=== PATIENT | male | born 1950 | race Caucasian/White ===

== ENCOUNTER 2025-02-22 16:48 | Emergency (ER) | payer OTHER, SELFPAY ==
[2025-02-22 16:54] VITALS: BP 149/90
--- NOTE | 2025-02-22 19:07 | ED.GENMED ---
History of Present Illness
General
Chief Complaint: Musculo-Skeletal Complaint
Source: patient
Exam Limitations: none
Time Seen by Provider: 02/22/25 18:37
Nursing documentation reviewed up to this point in time: agreed with
History of Present Illness
History of Present Illness:
Patient is a 74-year-old male who presents to the emergency department with right shoulder pain after mechanical fall earlier today. Patient states that he was at [place] old [place] when he tripped on the curb and fell landing on his right shoulder.
He denies any head strike or loss of conscious. He denies any neck or back pain or pain in his lower extremities.
He initially went home and took 2 Advil however pain in his right shoulder progressed prompting visit to the emergency department. He denies any numbness/tingling in right arm or digits. He denies any weakness in right arm. He is however having
difficulty with abduction of right shoulder secondary to pain.
He is not on any blood thinners.
Past History
Past History
ED Past Medical History: Asthma, IDDM and Hypothyroidism
ED Past Surgical History: Other
Social History
Tobacco: Non-smoker
Drug: None
Personal:
Living: with family
Employment: Retired
Review of Systems
Review of Systems
Allergies reviewed?: Yes
All Other Systems: ROS reviewed and negative except as documented in HPI and ROS
Phy Exam
Physical Exam
Physical Exam:
Vitals: Hypertensive, otherwise vital signs stable. Afebrile
General: Patient is well appearing, no acute distress. Nontoxic appearing
Skin: Warm and dry, no rashes or lesions
Head: Normocephalic, atraumatic
Throat: Protecting airway
Neck: Normal ROM, no cervical spine tenderness
Cardiac: Regular rate and rhythm. No tenderness to anterior/posterior chest wall
Pulm: No apparent respiratory distress. Lungs clear bilaterally
Abdomen: Soft and nontender. Nondistended. No ecchymoses
Extremities: Tenderness over right mid clavicle. No tenting. No deformity of right shoulder. Limited abduction of right shoulder past 90 degrees secondary to pain. 2+ palpable right radial pulse with full sensation normal capillary refill. Full
range of motion of right elbow, no bony tenderness right upper arm or right forearm. Left upper extremity and bilateral lower extremities atraumatic and nontender with full range of motion
Neuro: Grossly intact
Psychiatric: Normal affect.
Course
Orders/Labs/Results
Orders:
Orders
02/22/25 16:57
CR Clavicle - Right Complete Urgent
Comment:
Reason For Exam: Injury
02/22/25 19:11
Sling Right-Treatment ONCE
Vital Signs
Initial and Last Documented VS:
Initial Vital Signs
Pulse Resp BP Pulse Ox
86 16 149/90 99
02/22/25 16:54 02/22/25 16:54 02/22/25 16:54 02/22/25 16:54
Last Documented Vital Signs
Pulse Resp BP Pulse Ox
77 16 141/78 98
02/22/25 19:29 02/22/25 19:29 02/22/25 19:29 02/22/25 19:29
MDM/Problems Addressed
Differential Diagnosis Includes:
Not limited to: Clavicle fracture, shoulder dislocation, shoulder contusion, muscle strain, proximal humerus fracture, etc.
MDM/Problems Addressed:
74-year-old male presents with right shoulder pain following mechanical fall earlier today. No associated head strike or loss of consciousness. No numbness/tingling in right arm or other injury sustained. Patient mildly hypertensive with
otherwise stable vital signs on arrival. Physical exam as above. X-ray reveals fracture of middle third of right clavicle. No skin tenting on exam. Right upper extremity neurovascularly intact. Will place right shoulder sling and discharged
home with orthopedic follow-up. Advised ice, NSAIDs/Tylenol for pain. Return precaution discussed. Patient comfortable with plan.
Chronic conditions affecting care:
N/A
Acute Exacerbation and/or Progression of Chronic Illness:
N/A
*Radiology
Radiology exam reviewed: preliminary read by ED provider (Right shoulder x-ray reviewed by me-mid clavicle fracture) and radiology read reviewed
*Pulse Oximetry
SaO2: 99
Oxygen Mode of Delivery: Room air
Patient hypoxic: no
*EKG
Interpreted by ED Provider?: NA
*Circular Saw Edge Fuser Interpretation
Rate: Circular Saw Edge Fuser- N/A
*Critical Care Note
Total Time (30-74mins, 75-104mins- exclusive of procedures): Not Applicable
Patient Management
Escalation/DeEscalation of care consider admission/obs:
Discharge with orthopedic follow-up outpatient
ED Attending Note
-
Portions of this chart may have been created with voice recognition software.� Occasional wrong word or��sound alike� substitutions may have occurred due to the inherent limitations of voice recognition software.
Discharge Plan
Departure
Patient Disposition: Home (Routine Discharge)
Date of Disposition: 02/22/25
Time of Disposition: 19:13
Patient with high blood pressure during this ER visit?: Yes
Condition: Good
Discharge Problem:
Right clavicle fracture
Instructions: Clavicle fracture, How to Use a Shoulder Sling, BLOOD PRESSURE
Prescriptions:
No Action
pravastatin 40 MG tablet
40 mg PO HS
lisinopril 10 MG tablet
10 mg PO DAILY
levothyroxine 150 MCG tablet
150 mcg PO DAILY
mometasone [Nasonex] 17 GM spray,non-aerosol
1 spray intranasal DAILY
aspirin 81 MG tablet,delayed release (DR/EC)
81 mg PO DAILY
tramadol 50 MG tablet
50 mg PO HS
Patient's Own Insulin Pump
0 units SC . PTS OWN PUMP
Patient Comments:
Patient uses Novolog basal rate 0.6 and bolus with meals
budesonide-formoterol [Symbicort] 1 PUFF HFA aerosol inhaler
2 puff inhalation R BID 0RF
oxycodone-acetaminophen 5-325 mg Tablet
2 tab PO Q4HPRN PRN (Reason: severe pain) Qty: 20 0RF
docusate sodium 100 mg Capsule
100 mg PO BID Qty: 60 0RF
tamsulosin 0.4 mg Capsule
0.4 mg PO DAILY Qty: 30 0RF
polyethylene glycol 3350 17 gram Powder In Packet
17 g PO DAILY Qty: 30 0RF
gabapentin 300 mg capsule
300 mg PO BID Qty: 60 0RF
furosemide 20 mg tablet
20 mg PO DAILY Qty: 20 0RF
Referrals:
Nba Sanders Jr., DO [Family Provider, Internal Medicine]
Christofer Aguayo MD [Active, Orthopedics] - Follow up in 1 week
Activity Restrictions/Additional Instructions:
RETURN TO THE EMERGENCY DEPARTMENT WITH ANY SIGNIFICANT PAIN OR WORSENING SWELLING RIGHT UPPER EXTREMITY, NUMBNESS/TINGLING RIGHT ARM, SIGNIFICANT WEAKNESS IN RIGHT ARM, HEADACHE OR NECK PAIN, OR ANY OTHER CONCERNS
- As discussed�your x-ray showed a fracture of your right clavicle. You should keep your right arm in shoulder sling for immobilization. You should ice the affected area frequently over the next few days. You can take Tylenol and/or Motrin as
needed for pain.
- Please be sure to range your elbow and shoulder minimally throughout the day to prevent stiffening of your joints.
- Follow-up with orthopedics within 1 week for further evaluation/management. The contact information has been provided for you above
Monitor your symptoms closely and return to the emergency department with any acute worsening/new symptoms or any other concerns
Interventions
Interventions:
*Risk Screen - Suicide Last Done: 02/22/25 19:29
*General Assessment Last Done: 02/22/25 19:29
*Neglect/Abuse Screening Last Done: 02/22/25 19:29
*ED- Fall Risk Assessment Last Done: 02/22/25 19:29
*ED COVID-19 Vaccine History Last Done: 02/22/25 19:29
*Nursing Disposition Last Done: 02/22/25 19:30
ED-Musculoskeletal Assessment Last Done: 02/22/25 19:29
Discharge Date and Time
Discharge Date/Time: 02/22/25 19:30
Print Language: BURUNDIAN
[2025-02-22 19:29] VITALS: BP 141/78
== END 2025-02-22 19:30 | disposition home or self-care (01) ==
LOC: EMR 16:48
PROVIDERS: EMERGENCY PHYSICIAN Student in an Organized Health Care Education/Training Program; FAMILY PHYSICIAN Family Medicine
DX: S42.021A Displaced fracture of shaft of right clavicle, initial encounter for closed fracture (principal); W19.XXXA Unspecified fall, initial encounter; E11.9 Type 2 diabetes mellitus without complications; E03.9 Hypothyroidism, unspecified; J45.909 Unspecified asthma, uncomplicated; Z79.4 Long term (current) use of insulin
CPT/HCPCS: 99283; 73000

== ENCOUNTER 2025-04-12 08:35 | Outpatient (RCR) | payer OTHER, SELFPAY | END 2025-04-12 23:59 | disposition home or self-care (01) | LOC: RPT 08:35 | PROVIDERS: ATTENDING PHYSICIAN Physician Assistant; FAMILY PHYSICIAN Family Medicine | DX: S42.021D Displaced fracture of shaft of right clavicle, subsequent encounter for fracture with routine healing (principal); Z73.6 Limitation of activities due to disability | CPT/HCPCS: 97110; 97161 ==

== ENCOUNTER 2025-07-02 13:24 | Emergency (ER) | payer OTHER, SELFPAY ==
[2025-07-02 13:27] VITALS: BP 148/73
--- NOTE | 2025-07-02 15:03 | ED.GENMED ---
History of Present Illness
General
Chief Complaint: Bowel Problem
Time Seen by Provider: 07/02/25 15:00
History of Present Illness
History of Present Illness:
FOCUSED PAST MEDICAL HISTORY
- High blood pressure, hyperlipidemia, IDDM
REVIEW OF OLD RECORDS
- The patient had colonoscopy in 2022 that showed sigmoid polyp which was removed and internal hemorrhoids
Note:
CHIEF COMPLAINT(S)
Constipation and difficulty having a bowel movement.
HISTORY OF PRESENT ILLNESS
The patient is a 74-year-old male who presents with concerns of constipation. The patient reported feeling the urge to have a bowel movement this morning but was initially unable to do so. Later, he had a bowel movement at home and another at the
facility approximately ten minutes before the consultation. He feels 'pretty good' now and does not currently have the sensation of needing to pass stool. There is no abdominal pain upon palpation, and he denies the presence of nausea or vomiting.
Recent evaluation by his primary care physician led to an increase in his Plavix dosage from 10 mg to 20 mg, and instructions were given to temporarily withhold one dose of Synthroid due to its levels being slightly elevated.
PAST MEDICAL AND SURGICAL HISTORY
According to external records reviewed by the provider, the patient has undergone a colonoscopy that identified and removed a small polyp, and internal hemorrhoids were noted, but no significant findings were reported.
EXTERNAL RECORDS REVIEWED
A review of the patients prior records indicates a colonoscopy with a small polyp removal and internal hemorrhoids.
CHRONIC MEDICAL CONDITIONS SIGNIFICANTLY AFFECTING CARE
The patient has a history of thyroid dysfunction and is on Synthroid medication. He also suffers from chronic back pain, for which he takes Tramadol at night.
SOCIAL DETERMINANTS AFFECTING HEALTH
The patient reports being brought to the facility by his .
MEDICATIONS
The patient is currently taking Synthroid for thyroid management and uses Tramadol at night for back pain.
REVIEW OF SYSTEMS
- Gastrointestinal: Reports recent constipation and difficulty with bowel movements.
- Neurological: No focal neurological deficits reported.
PHYSICAL EXAM
General: Alert, no acute distress.
Skin: Warm, dry. Some dried stool noted in the perianal region.
Head: Normocephalic, atraumatic.
Neck: Supple, trachea midline.
Eye, Ears, nose, mouth, and throat: Oral mucosa moist.
Cardiovascular: Normal peripheral perfusion, no edema. Regular rhythm.
Respiratory: Respirations are non-labored.
Gastrointestinal: Abdomen soft, non-tender upon palpation.
Rectal: Rectal vault empty, no fecal impaction felt.
Back: Normal range of motion, Normal alignment.
Musculoskeletal: Normal ROM, normal strength.
Neurological: Alert and oriented to person, place, time, and situation, No focal neurological deficit observed.
Psychiatric: Cooperative, appropriate mood & affect.
PROBLEM LIST
Acute: Constipation.
Chronic: Thyroid dysfunction, Back pain managed with Tramadol.
PLAN
1. Recommend vfey-vpw-hhenbib laxatives such as Miralax, Colace, or Senna to manage constipation.
2. Increase dietary fiber and hydration as tolerated.
3. Monitor bowel movements and return if symptoms worsen or do not improve.
4. Continue current medications as prescribed, with the temporary withholding of one Synthroid dose as per prior instructions.
5. Discharge home with instructions to follow up with primary care if needed.
DIFFERENTIAL DIAGNOSIS
The Differential Diagnosis includes, in no particular order and is not limited to:
1. Fecal impaction
2. Hypothyroidism
3. Hyperparathyroidism
4. Medication-induced constipation (e.g., Tramadol)
5. Colonic polyps
6. Hemorrhoids
7. Gastrointestinal motility disorders
8. Dehydration
9. Dietary factors or fiber intake issues
10. Irritable bowel syndrome
Disposition:
SUMMARY OF ENCOUNTER
The patient, a 74-year-old male, was evaluated for constipation and difficulty having a bowel movement. Upon presentation, he reported feeling improved after having a bowel movement both before and shortly after arrival at the emergency department.
His abdominal examination showed a soft and non-tender abdomen with an empty rectal vault, leading to the decision that no further workup was needed. Akhh-[id number] MiraLAX (polyethylene glycol 3350) was recommended for the management of his
constipation.
PLAN
1. Recommend the use of MiraLAX (polyethylene glycol 3350) to aid in bowel movements.
2. Advise increasing dietary fiber intake and maintaining adequate hydration.
3. Encourage monitoring of bowel movements and recommend returning for further evaluation if symptoms persist or worsen.
PATIENT EDUCATION AND COUNSELING
The patient was counseled on the potential benefits of using MiraLAX and the importance of dietary fiber and adequate hydration in managing constipation.
FOLLOW-UP INSTRUCTIONS
Follow up with the primary care physician if symptoms do not improve or worsen.
MEDICAL DECISION MAKING
- Number and Complexity of Problems Addressed: Chronic conditions affecting care: Thyroid dysfunction, back pain managed with tramadol. Differential diagnosis includes fecal impaction, hypothyroidism, hyperparathyroidism, medication-induced
constipation, colonic polyps, hemorrhoids, gastrointestinal motility disorders, dehydration, dietary factors, and irritable bowel syndrome.
- Data:
Category 1
- Review of prior records indicates a colonoscopy with a small polyp removal and internal hemorrhoids.
- Clinical information was obtained from the patients spouse.
Category 2
- No imaging or additional testing considered necessary based on current assessment.
- Risk:
Prescription drug management or therapy requiring monitoring for toxicity.
Care significantly affected by Social Determinants of Health: Patient transported by spouse.
DIAGNOSIS
- Constipation (ICD-10: K59.00)
- Internal hemorrhoids (ICD-10: K64.8)
- History of thyroid dysfunction (ICD-10: E07.9)
- Chronic narcotic use
Past History
Past History
ED Past Medical History: Asthma, IDDM and Hypothyroidism
ED Past Surgical History: Other
Social History
Tobacco: Non-smoker
Drug: None
Personal:
Living: with family
Employment: Retired
Phy Exam
Physical Exam
Physical Exam:
See HPI
Course
Vital Signs
Initial and Last Documented VS:
Initial Vital Signs
Temp Pulse Resp BP Pulse Ox
36.6 C 85 16 148/73 98
07/02/25 13:27 07/02/25 13:27 07/02/25 13:27 07/02/25 13:27 07/02/25 13:27
Last Documented Vital Signs
Temp Pulse Resp BP Pulse Ox
36.6 C 85 16 148/73 98
07/02/25 13:27 07/02/25 13:27 07/02/25 13:27 07/02/25 13:27 07/02/25 15:04
*Pulse Oximetry
SaO2: 98
Oxygen Mode of Delivery: Room air
Patient hypoxic: no
*Critical Care Note
Total Time (30-74mins, 75-104mins- exclusive of procedures): Not Applicable
ED Attending Note
-
Portions of this chart may have been created with voice recognition software.� Occasional wrong word or��sound alike� substitutions may have occurred due to the inherent limitations of voice recognition software.
Discharge Plan
Departure
Patient Disposition: Home (Routine Discharge)
Date of Disposition: 07/02/25
Time of Disposition: 15:15
Patient with high blood pressure during this ER visit?: Yes
Discharge Problem:
Constipation
Instructions: Constipation, Adult (DC), BLOOD PRESSURE
Prescriptions:
No Action
pravastatin 40 MG tablet
40 mg PO HS
lisinopril 10 MG tablet
10 mg PO DAILY
levothyroxine 150 MCG tablet
150 mcg PO DAILY
mometasone [Nasonex] 17 GM spray,non-aerosol
1 spray intranasal DAILY
aspirin 81 MG tablet,delayed release (DR/EC)
81 mg PO DAILY
tramadol 50 MG tablet
50 mg PO HS
Patient's Own Insulin Pump
0 units SC . PTS OWN PUMP
Patient Comments:
Patient uses Novolog basal rate 0.6 and bolus with meals
budesonide-formoterol [Symbicort] 1 PUFF HFA aerosol inhaler
2 puff inhalation R BID 0RF
oxycodone-acetaminophen 5-325 mg Tablet
2 tab PO Q4HPRN PRN (Reason: severe pain) Qty: 20 0RF
docusate sodium 100 mg Capsule
100 mg PO BID Qty: 60 0RF
tamsulosin 0.4 mg Capsule
0.4 mg PO DAILY Qty: 30 0RF
polyethylene glycol 3350 17 gram Powder In Packet
17 g PO DAILY Qty: 30 0RF
gabapentin 300 mg capsule
300 mg PO BID Qty: 60 0RF
furosemide 20 mg tablet
20 mg PO DAILY Qty: 20 0RF
Activity Restrictions/Additional Instructions:
I recommend MiraLAX for constipation. There are other [id number] options such as Colace and Senokot. You have no stool that I could feel in your rectum on examination and your abdomen is soft and nontender. Return if worse or other
concerns. Tramadol sometimes can lead to constipation.
Interventions
Interventions:
*Risk Screen - Suicide Last Done: 07/02/25 13:29
*Neglect/Abuse Screening Last Done: 07/02/25 13:29
Discharge Date and Time
Print Language: ROMANSH
[2025-07-02 15:21] VITALS: BP 157/70
[2025-07-02 15:22] VITALS: BMI 22.8
== END 2025-07-02 15:33 | disposition home or self-care (01) ==
LOC: EMR 13:24
PROVIDERS: EMERGENCY PHYSICIAN Emergency Medicine; FAMILY PHYSICIAN Family Medicine
DX: K59.00 Constipation, unspecified (principal); E03.9 Hypothyroidism, unspecified; E11.9 Type 2 diabetes mellitus without complications; J45.909 Unspecified asthma, uncomplicated; E78.5 Hyperlipidemia, unspecified; G89.29 Other chronic pain; F11.90 Opioid use, unspecified, uncomplicated; Z79.4 Long term (current) use of insulin; Z86.0100 Personal history of colon polyps, unspecified; Z87.19 Personal history of other diseases of the digestive system
CPT/HCPCS: 99282